=== PATIENT | female | born 2000 | race Hispanic/Latino ===

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

== ENCOUNTER 2019-04-17 11:14 | Emergency (ER) | payer SELFPAY ==
--- NOTE | 2019-04-17 11:49 | EDPHYS ---
Physician Documentation [facility] Name: Lucian Moore Age: 18 yrs Sex: Female : 2000 Arrival Date: 04/17/2019 Time: 11:23 Bed 16 Private MD: None, None ED Physician Souleymane Carvalho HPI: 04/17 11:43 This 18 yrs old Female presents to ER via Ambulatory with complaints of Low la1 Back Pain. 11:43 The patient presents with pain that is acute, that is chronic. The symptoms are located la1 in the low back, lumbar spine. The pain does not radiate. Modifying factors: The patient symptoms are alleviated by OTC meds, NSAID, the patient symptoms are aggravated by bending, movement. Associated signs and symptoms: Pertinent negatives: hematuria, incontinence, numbness, tingling, urinary retention, weakness. Severity of symptoms: At their worst the symptoms were mild. The patient has experienced similar episodes in the past. Pt reports history of back pain for the last month which became worse after moving boxes yesterday. Denies numbness/tingling, incontinence.. 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 - Social history:: Smoking status: Patient uses tobacco products, denies chronic smoking, but will smoke occasionally. - Ebola Screening: : No symptoms or risks identified at this time. ROS: 11:45 Constitutional: Negative for fever, chills, and weight loss, Eyes: Negative for injury, la1 pain, redness, and discharge, ENT: Negative for injury, pain, and discharge, Neck: Negative for injury, pain, and swelling, Cardiovascular: Negative for chest pain, palpitations, and edema, Respiratory: Negative for shortness of breath, cough, wheezing, and pleuritic chest pain, Abdomen/GI: Negative for abdominal pain, nausea, vomiting, diarrhea, and constipation, Back: Negative for injury and pain, : Negative for injury, bleeding, discharge, and swelling, Skin: Negative for injury, rash, and discoloration, Neuro: Negative for headache, weakness, numbness, tingling, and seizure. 11:45 MS/extremity: Positive for pain, of the lumbar spine. Exam: 11:45 Constitutional: This is a well developed, well nourished patient who is awake, alert, la1 and in no acute distress. Head/Face: Normocephalic, atraumatic. Eyes: Pupils equal round and reactive to light, extra-ocular motions intact. Periorbital areas with no swelling, redness, or edema. ENT: Mucous membranes moist. Neck: No Meningismus. Chest/axilla: Normal chest wall appearance and motion. Nontender with no deformity. No lesions are appreciated. Cardiovascular: Regular rate and rhythm with a normal S1 and S2. No gallops, murmurs, or rubs. Normal PMI, no JVD. No pulse deficits. 11:45 Back: pain, that is mild, ROM is painful, with flexion, normal spinal alignment noted, CVA tenderness, is absent, muscle spasm, is appreciated in the lumbar area, Straight leg raises: left lower extremity does not illicit pain, right lower extremity illicits pain, at 30 degrees. 11:45 Neuro: Orientation: is normal, Motor: is normal, Sensation: is normal. Vital Signs: 11:34 BP 117 / 79; Pulse 72; Resp 16; Temp 97.3; Pulse Ox 100% on R/A; Weight 113.7 kg (M); hb Height 5 ft. 2 in. (157.48 cm); Pain 7/10; 12:01 BP 121 / 75; Pulse 71; Resp 16; Temp 97.8; Pulse Ox 100% ; bp 11:34 Body Mass Index 45.85 (113.70 kg, 157.48 cm) hb MDM: 11:28 Patient medically screened. la1 11:47 Data reviewed: vital signs, nurses notes, and as a result, I will discharge patient. la1 Data interpreted: Pulse oximetry: on room air is 100 %. Counseling: I had a detailed discussion with the patient and/or guardian regarding: the historical points, exam findings, and any diagnostic results supporting the discharge/admit diagnosis, the need for outpatient follow up, a family practitioner. Administered Medications: No medications were administered Disposition: 04/17/19 11:48 Discharged to Home. Impression: Low back pain. - Condition is Stable. - Discharge Instructions: Back Pain, Adult, Musculoskeletal Pain, Back Injury Prevention, [id number]. - Prescriptions for Cyclobenzaprine 10 mg Oral Tablet - take 1 tablet by ORAL route every 8 hours As needed; 30 tablet. - Work release form, Medication Reconciliation Form, Thank You Letter form. - Follow up: Private Physician; When: 2 - 3 days; Reason: Recheck today's complaints, Re-evaluation by your physician. Follow up: Emergency Department; When: As needed. - Problem is new. - Symptoms are unchanged. Addendum: 04/18/2019 20:53 Co-signature as Attending Physician, Souleymane Carvalho MD I agree with the assessment and k dr plan of care. Signatures: Souleymane aCrvalho MD MD [facility] Niko Hinds, DELANEY-C MEDICAL BILLING SPECIALIST-Cla1 Sonia Haynes, RN RN Otf Schuster, RN RN bp Corrections: (The following items were deleted from the chart) 04/17 12:05 11:48 04/17/2019 11:48 Discharged to Home. Impression: Low back pain. Condition is bp Stable. Forms are Medication Reconciliation Form, Thank You Letter, Antibiotic Education, Prescription Opioid Use. Follow up: Private Physician; When: 2 - 3 days; Reason: Recheck today's complaints, Re-evaluation by your physician. Follow up: Emergency Department; When: As needed. Problem is new. Symptoms are unchanged. la1
--- NOTE | 2019-04-17 11:49 | ER ---
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 Transition of care: patient was not received from another setting of care. Onset of symptoms was April 16, 2019. Risk Assessment: Do you want to hurt yourself or someone else? Patient reports no desire to harm self or others. Initial Sepsis Screen: Does the patient meet any 2 criteria? No. Patient's initial sepsis screen is negative. Does the patient have a suspected source of infection? No. Patient's initial sepsis screen is negative. Care prior to arrival: None. 11:33 Method Of Arrival: Ambulatory hb 11:33 Acuity: SAMUEL 4 hb Triage Assessment: 11:33 General: Appears in no apparent distress. comfortable, obese, Behavior is calm, bp cooperative, appropriate for age. Pain: Complains of pain in lumbar area. EENT: No deficits noted. Neuro: No deficits noted. Cardiovascular: No deficits noted. Respiratory: No deficits noted. GI: No signs and/or symptoms were reported involving the gastrointestinal system. : No signs and/or symptoms were reported regarding the genitourinary system. : No deficits noted. Derm: No deficits noted. Musculoskeletal: No deficits noted. 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 - Social history:: Smoking status: Patient uses tobacco products, denies chronic smoking, but will smoke occasionally. - Ebola Screening: : No symptoms or risks identified at this time. Screenin:36 Abuse screen: Denies threats or abuse. Denies injuries from another. Nutritional bp screening: No deficits noted. Tuberculosis screening: No symptoms or risk factors identified. Fall Risk None identified. Assessment: 11:36 General: SEE TRIAGE NOTE. bp 12:00 Reassessment: PT D/C HOME AMBULATORY WITH FAMILY, DX WITH LOW BACK PAIN. bp Vital Signs: 11:34 BP 117 / 79; Pulse 72; Resp 16; Temp 97.3; Pulse Ox 100% on R/A; Weight 113.7 kg (M); hb Height 5 ft. 2 in. (157.48 cm); Pain 7/10; 12:01 BP 121 / 75; Pulse 71; Resp 16; Temp 97.8; Pulse Ox 100% ; bp 11:34 Body Mass Index 45.85 (113.70 kg, 157.48 cm) hb ED Course: 11:23 Patient arrived in ED. ag5 11:23 None, None is Private Physician. ag5 11:25 [facility] la1 11:25 Souleymane Carvalho MD is Attending Physician. la1 11:28 Otf Schuster, RN is Primary Nurse. bp 11:33 Triage completed. hb 11:36 Arm band placed on. hb 11:36 Patient has correct armband on for positive identification. Bed in low position. Call bp light in reach. Side rails up X2. Adult w/ patient. 12:04 No provider procedures requiring assistance completed. Patient did not have IV access bp during this emergency room visit. Administered Medications: No medications were administered Outcome: 11:48 Discharge ordered by MD. la1 12:04 Discharged to home via ambulance, with family. bp 12:04 Condition: stable 12:04 Discharge instructions given to patient, Instructed on discharge instructions, follow up and referral plans. medication usage, Demonstrated understanding of instructions, follow-up care, medications, Prescriptions given X 1. 12:05 Patient left the ED. bp Signatures: Niko Hinds FNP-C LIQUID COMPOUNDER-Cla1 Sonia Haynes RN RN Otf Schuster, NORIS RN bp Tien Arredondo ag5 Corrections: (The following items were deleted from the chart) 12:03 12:02 Abuse screen: Denies threats or abuse. Denies injuries from another. bp bp 12:03 12:02 Nutritional screening: No deficits noted. bp bp 12:03 12:02 Tuberculosis screening: No symptoms or risk factors identified. bp bp 12:03 12:02 Fall Risk None identified. bp bp
[2019-04-17 12:19] VITALS: O2SAT 100
[2019-04-17 12:21] VITALS: BP 121/75; TEMP 97.8
== END 2019-04-17 12:05 | disposition home or self-care (01) ==
LOC: ER 11:14
DX: M54.5 Low back pain (principal); Z72.0 Tobacco use
CPT/HCPCS: 99282

== ENCOUNTER 2019-08-24 | Emergency (ER) | payer SELFPAY | END 2019-08-24 22:57 | disposition home or self-care (01) | CPT/HCPCS: 87070; 87081; 87804; 99283; U0001; U0002 ==

== ENCOUNTER 2021-05-24 15:01 | Emergency (ER) | payer SELFPAY ==
[2021-05-24 15:52] LABS: Absolute Lymphocytes (CBC) 2.3 K/uL (0.7-4.9); Hematocrit 38.9 % (36.0-45.0); Lymphocytes % 33.2 % (15.3-44.8); MPV 8.7 fL (7.6-11.3); RBC Red Blood Cell Count 4.16 M/uL (3.86-4.86)
[2021-05-24 15:58] LABS: Protime INR 0.99
[2021-05-24 16:11] LABS: ALT/SGPT 45 U/L (12-78); AST/SGOT 21 U/L (15-37); Albumin 3.5 g/dL (3.4-5.0); Alkaline Phosphatase 79 U/L (45-117); BUN Blood Urea Nitrogen 13 mg/dL (7-18); Bicarbonate 25 mmol/L (21-32); Bilirubin Direct < 0.1 mg/dL (0-0.2); Bilirubin Total 0.4 mg/dL (0.2-1.0); Glucose Level 108 mg/dL (74-106); Magnesium 2.1 mg/dL (1.8-2.4); NT PRO-BNP 33 pg/mL (<125); Protein, Total 7.6 g/dL (6.4-8.2); Sodium Level 137 mmol/L (136-145)
--- NOTE | 2021-05-24 16:44 | RAD REPORT ---
EXAM DESCRIPTION: RAD - Chest Single View - 05/24/2021 4:01 pm CLINICAL HISTORY: CHEST PAIN COMPARISON: None TECHNIQUE: AP portable chest image was obtained 05/24/2021 4:01 pm . FINDINGS: Lung volumes are low accentuating the bibasilar lung markings. No acute lung parenchymal p rocess suspected. Failure and volume overload are not suspected. The Heart and vasculature are normal . No measurable pleural effusion and no pneumothorax. No acute bony abnormality seen. No acute aortic findings suspected. IMPRESSION: No acute cardiopulmonary process.
[2021-05-24] MEDS ORDERED: MAGNES/ALUMIN/SIMET 30ML UCUP ONE (17:25)
[2021-05-24] MEDS ORDERED: LIDOCAINE VISCOUS 2% SOLN 15 ML UDC ONE (17:25)
--- NOTE | 2021-05-24 17:34 | ER ---
Nurse's Notes [facility] Name: Lucian Moore Age: 20 yrs Sex: Female : 2000 Arrival Date: 05/24/2021 Time: 15:05 Bed 12 Private MD: Diagnosis: Chest pain, unspecified Presentation: 05/24 15:07 Chief complaint: Patient states: "I am having chest pain in me left side of my chest jd3 that started last night and got worse today.". Coronavirus screen: At this time, the client does not indicate any symptoms associated with coronavirus-19. Ebola Screen: No symptoms or risks identified at this time. Initial Sepsis Screen: Does the patient meet any 2 criteria? No. Patient's initial sepsis screen is negative. Does the patient have a suspected source of infection? No. Patient's initial sepsis screen is negative. Risk Assessment: Do you want to hurt yourself or someone else? Patient reports no desire to harm self or others. Onset of symptoms was May 23, 2021. 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 Flu vaccine is not up to date. - Social history:: Smoking status: Patient reports the use of cigarette tobacco products, denies chronic smoking, but will smoke occasionally. Vital Signs: 15:09 BP 115 / 81; Pulse 76; Resp 18 S; Temp 97.9(TE); Pulse Ox 100% on R/A; Weight 113.4 kg jd3 (R); Height 5 ft. 3 in. (160.02 cm) (R); Pain 7/10; 15:09 Body Mass Index 44.29 (113.40 kg, 160.02 cm) jd3 ED Course: 15:05 Patient arrived in ED. mr 15:08 Triage completed. jd3 15:10 Arm band placed on. jd3 15:13 Mickail, Ian, PA is PHCP. [facility] 15:13 Souleymane Carvalho MD is Attending Physician. [facility] 15:25 Olamide Mckinley, RN is Primary Nurse. [facility] 15:43 CBC with Diff Sent. 5 15:43 LFT's Sent. [facility] 15:43 Magnesium Sent. 5 15:43 NT PRO-BNP Sent. 5 15:43 PT-INR Sent. [facility] 15:43 Troponin HS Sent. [facility] 15:43 Basic Metabolic Panel Sent. 5 15:43 D-Dimer Sent. [facility] 16:00 XRAY Chest (1 view) In Process Unspecified. EDMS 17:34 Carlos Moura MD is Referral Physician. [facility] Administered Medications: 17:27 Drug: GI Cocktail without - (Maalox Suspension 30 ml, Lidocaine Liquid 2 % 15 jh5 ml) Route: PO; Outcome: 17:34 Discharge ordered by MD. [facility] 18:22 Patient left the ED. [facility] Signatures: Dispatcher [employer] EDRI Ian Urrutia PA PA [facility] Harriett RobertsTrell RN RN Olamide Mak, RN RN [facility] Corrections: (The following items were deleted from the chart) 15:10 15:09 Pulse 76bpm; Resp 18bpm; Spontaneous; Pulse Ox 100% RA; Temp 97.9F Temporal; jd3 113.4 kg Reported; Height 5 ft. 3 in. Reported; BMI: 44.2; Pain 7/10; jd3
--- NOTE | 2021-05-24 17:35 | EDPHYS ---
Physician Documentation [facility] Name: Lucian Moore Age: 20 yrs Sex: Female : 2000 Arrival Date: 05/24/2021 Time: 15:05 Bed 12 Private MD: ED Physician Souleymane Carvalho HPI: 05/24 15:19 This 20 yrs old Female presents to ER via Ambulatory with complaints of Chest [facility] Pain. 15:19 The patient or guardian reports chest pain that is located primarily in the substernal [facility] area. The pain does not radiate. Associated signs and symptoms: Pertinent negatives: abdominal pain, cough, shortness of breath. The chest pain is described as aching. Duration: The patient or guardian reports a single episode. Modifying factors: The symptoms are alleviated by nothing. the symptoms are aggravated by nothing. The patient has not experienced similar symptoms in the past. This is a 20-year-old female with no chronic medical conditions presents emerged part with complaints of left-sided chest pain beginning last night. Symptoms have been constant. There is no radiation of pain. Denies shortness of breath or hemoptysis. Denies leg swelling. Patient is not taking any prescriptions.. 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 Flu vaccine is not up to date. - Social history:: Smoking status: Patient reports the use of cigarette tobacco products, denies chronic smoking, but will smoke occasionally. ROS: 15:19 Constitutional: Negative for fever, chills, and weight loss. jmm 15:19 Cardiovascular: Positive for chest pain. 15:19 All other systems are negative. Exam: 15:19 Constitutional: This is a well developed, well nourished patient who is awake, alert, jmm and in no acute distress. Head/Face: atraumatic. Eyes: EOMI, no conjunctival erythema appreciated ENT: Moist Mucus Membranes Neck: Trachea midline, Supple Chest/axilla: Normal chest wall appearance and motion. 15:19 Respiratory: Normal respirations, no respiratory distress appreciated Abdomen/GI: Non distended, soft Back: Normal ROM Skin: General appearance color normal MS/ Extremity: Moves all extremities, no obvious deformities appreciated, no edema noted to the lower extremities Neuro: Awake and alert Psych: Behavior is normal, Mood is normal, Patient is cooperative and pleasant 15:19 Cardiovascular: Rate: normal, Rhythm: regular, Pulses: no pulse deficits are appreciated. Vital Signs: 15:09 BP 115 / 81; Pulse 76; Resp 18 S; Temp 97.9(TE); Pulse Ox 100% on R/A; Weight 113.4 kg jd3 (R); Height 5 ft. 3 in. (160.02 cm) (R); Pain 7/10; 15:09 Body Mass Index 44.29 (113.40 kg, 160.02 cm) jd3 MDM: 15:19 Patient medically screened. [facility] 17:30 Data reviewed: vital signs, nurses notes. Counseling: I had a detailed discussion with vishal the patient and/or guardian regarding: the historical points, exam findings, and any diagnostic results supporting the discharge/admit diagnosis, lab results, radiology results, the need for outpatient follow up, to return to the emergency department if symptoms worsen or persist or if there are any questions or concerns that arise at home. 05/24 15:21 Order name: Basic Metabolic Panel [facility] 05/24 15:21 Order name: CBC with Diff; Complete Time: 15:56 [facility] 05/24 15:21 Order name: LFT's; Complete Time: 16:16 [facility] 05/24 15:21 Order name: Magnesium; Complete Time: 16:16 [facility] 05/24 15:21 Order name: NT PRO-BNP; Complete Time: 16:16 [facility] 05/24 15:21 Order name: PT-INR; Complete Time: 16:16 [facility] 05/24 15:21 Order name: Troponin HS; Complete Time: 16:16 [facility] 05/24 15:21 Order name: XRAY Chest (1 view); Complete Time: 16:49 [facility] 05/24 15:21 Order name: EKG; Complete Time: 15:22 [facility] 05/24 15:21 Order name: Cardiac monitoring; Complete Time: 15:29 [facility] 05/24 15:21 Order name: EKG - Nurse/Tech; Complete Time: 15:43 [facility] 05/24 15:21 Order name: D-Dimer; Complete Time: 16:16 [facility] 05/24 15:21 Order name: Basic Metabolic Panel; Complete Time: 16:16 [facility] 05/24 15:21 Order name: IV Saline Lock; Complete Time: 15:43 [facility] 05/24 15:21 Order name: Labs collected and sent; Complete Time: 15:43 [facility] 05/24 15:21 Order name: O2 Per Protocol; Complete Time: 15:29 [facility] 05/24 15:21 Order name: O2 Sat Monitoring; Complete Time: 15:29 [facility] Administered Medications: 17:27 Drug: GI Cocktail without - (Maalox Suspension 30 ml, Lidocaine Liquid 2 % 15 jh5 ml) Route: PO; Disposition: 19:04 Co-signature as Attending Physician, Souleymane Carvalho MD I agree with the assessment and kdr plan of care. Disposition Summary: 05/24/21 17:34 Discharge Ordered Location: Home [facility] Condition: Stable [facility] Diagnosis - Chest pain, unspecified jmm Followup: jm - With: Carlos Moura MD - When: 2 - 3 days - Reason: Recheck today's complaints, Continuance of care, Re-evaluation by your physician Discharge Instructions: - Discharge Summary Sheet jmm - Nonspecific Chest Pain, Adult jmm Forms: - Medication Reconciliation Form [facility] - Thank You Letter jmm - Antibiotic Education jmm - Prescription Opioid Use [facility] Signatures: Dispatcher [employer] Souleymane Buck MD MD kdr Mickail, Joel, PA PA [facility] Trell Young RN RN jd3 Olamide Mckinley RN RN jh5
[2021-05-25 00:46] VITALS: BP 115/81; TEMP 97.9; O2SAT 100
--- NOTE | 2021-05-25 08:25 | EKG ---
Test Date: 2021-05-24 Test Time: 15:38:55 Ase Certified Technician: ZULEMA R MEASUREMENT RESULTS: Intervals: Rate: 71 MD: 138 QRSD: 80 QT: 418 QTc: 454 [place]: P: 35 MD: 138 QRS: 3 T: 16 INTERPRETIVE STATEMENTS: Normal sinus rhythm with sinus arrhythmia Normal ECG No previous ECG available for comparison Electronically Signed On 05-25-21 08:22:27 THERMODYNAMICS PROFESSOR by Jason Lopes
== END 2021-05-24 18:22 | disposition home or self-care (01) ==
LOC: ER 15:01
DX: R07.9 Chest pain, unspecified (principal)
CPT/HCPCS: 36415; 71045; 80048; 80076; 83735; 83880; 84484; 85025; 85379; 85610; 93005; 99283

== ENCOUNTER 2021-09-29 21:45 | Emergency (ER) | payer BC, SELFPAY ==
[2021-09-29] MEDS ORDERED: CEFAZOLIN SODIUM 1 GM/VIAL ONE (22:56)
[2021-09-29] MEDS ORDERED: HYDROCODONE/APAP 10/325 TAB ONE (22:57)
[2021-09-29] MEDS ORDERED: SMZ./TMP. 800/160 MG TABLET ONE (22:57)
[2021-09-29] MEDS ORDERED: WATER FOR INJ,STERILE 10 ML ONE (22:59)
--- NOTE | 2021-09-30 00:19 | ER ---
Nurse's Notes [facility] Name: Lucian Moore Age: 21 yrs Sex: Female : 2000 Arrival Date: 09/29/2021 Time: 21:48 Bed 12 Private MD: Diagnosis: Left great toe distal tuft fracture Presentation: 09/29 21:52 Chief complaint: Patient states: "Last week I dropped 4 rail row ties on my toe. I tw5 think My toe is getting worse not better.". Coronavirus screen: Vaccine status: Patient reports being unvaccinated. Ebola Screen: Patient negative for fever greater than or equal to 101.5 degrees Fahrenheit, and additional compatible Ebola Virus Disease symptoms Patient denies exposure to infectious person. Patient denies travel to an Ebola-affected area in the 21 days before illness onset. Initial Sepsis Screen: Does the patient meet any 2 criteria? No. Patient's initial sepsis screen is negative. Does the patient have a suspected source of infection? No. Patient's initial sepsis screen is negative. Risk Assessment: Do you want to hurt yourself or someone else? Patient reports no desire to harm self or others. Onset of symptoms is unknown. 21:52 Method Of Arrival: Ambulatory tw5 21:52 Acuity: SAMUEL 4 tw5 Triage Assessment: 21:56 General: Appears uncomfortable, obese, Behavior is calm, cooperative, appropriate for tw5 age. Pain: Complains of pain in left first toe and Left first toenail Pain currently is 5 out of 10 on a pain scale. 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 - Social history:: Smoking status: Patient reports the use of cigarette tobacco products, denies chronic smoking, but will smoke occasionally. Screenin:57 Abuse screen: Denies threats or abuse. Denies injuries from another. tw5 23:00 Nutritional screening: No deficits noted. Tuberculosis screening: No symptoms or risk fu factors identified. Fall Risk None identified. Assessment: 22:00 General: Appears in no apparent distress. Behavior is calm, cooperative, appropriate fu for age, Denies fever, feeling ill, fatigue, chills. Pain: Complains of pain in left foot Pain currently is 2 out of 10 on a pain scale. Quality of pain is described as throbbing, Pain began 6 days ago. Neuro: Level of Consciousness is awake, alert, obeys commands, Oriented to person, place, time, situation, Moves all extremities. Gait is steady, Speech is normal, Facial symmetry appears normal. Derm: swelling to left foot and big toe. Musculoskeletal: Swelling present in left foot and Left first toenail. 23:00 Reassessment: Patient is alert, oriented x 3, equal unlabored respirations, skin fu warm/dry/pink. Patient denies pain at this time. 09/30 00:00 Reassessment: Patient is alert, oriented x 3, equal unlabored respirations, skin fu warm/dry/pink. Vital Signs: 09/29 21:52 BP 126 / 77; Pulse 72; Resp 18; Temp 98.1(O); Pulse Ox 100% ; Weight 117.93 kg; Height tw5 5 ft. 3 in. (160.02 cm); Pain 5/10; 23:10 BP 125 / 83; Pulse 68; Resp 16; Temp 97.5; Pulse Ox 100% ; Pain 0/10; fu 09/30 00:00 BP 114 / 77; Pulse 62; Resp 16; Pulse Ox 96% on R/A; Pain 0/10; fu 09/29 21:52 Body Mass Index 46.06 (117.93 kg, 160.02 cm) tw5 ED Course: 09/29 21:48 Patient arrived in ED. ag3 21:56 Triage completed. tw5 21:56 Arm band placed on left wrist. tw5 22:25 Ruy Berg NP is PHCP. pm1 22:25 Douglas Webb MD is Attending Physician. pm1 22:42 Manan Fernandez, NORIS is Primary Nurse. fu 23:00 Patient has correct armband on for positive identification. Bed in low position. Call fu light in reach. Side rails up X 1. Pulse ox on. NIBP on. 23:03 Foot Left 3 View XRAY In Process Unspecified. EDMS 09/30 00:17 Otf Palm DPM is Referral Physician. pm1 00:55 No provider procedures requiring assistance completed. Patient did not have IV access fu during this emergency room visit. Dressings: 4X4s triple antibiotic. Administered Medications: 09/29 23:07 Drug: Ancef (cefazolin) 1 grams Route: IM; Site: left gluteus; fu 09/30 01:11 Follow up: Response: No adverse reaction fu 09/29 23:07 Drug: Bactrim (trimethoprim-sulfamethoxazole) (160 mg-800 mg (DS) 1 tablet Route: PO; fu 09/30 01:11 Follow up: Response: No adverse reaction fu 00:13 Not Given (Patient Refused): [place] (HYDROcodone-acetaminophen) 10 mg-325 mg 1 tabs PO fu once Medication: 09/29 23:00 VIS not applicable for this client. fu Outcome: 09/30 00:18 Discharge ordered by . pm1 01:11 Discharged to home ambulatory, with friend. fu 01:11 Condition: good 01:11 Discharge instructions given to patient, Instructed on discharge instructions, follow up and referral plans. Demonstrated understanding of instructions, follow-up care, Prescriptions given X 3. 01:12 Patient left the ED. fu Signatures: Dispatcher [employer] EDMS Ruy Berg, LIGHT FIXTURE SERVICER LIGHT FIXTURE SERVICER pm1 Manan Fernandez RN RN Odalis Omalley 3 Harleen Coyne 5 Corrections: (The following items were deleted from the chart) 01:06 01:06 Reassessment: Patient is alert, oriented x 3, equal unlabored respirations, skin fu warm/dry/pink. Patient denies pain at this time. fu
--- NOTE | 2021-09-30 00:19 | EDPHYS ---
Physician Documentation [facility] Name: Lucian Moore Age: 21 yrs Sex: Female : 2000 Arrival Date: 09/29/2021 Time: 21:48 Bed 12 Private MD: ED Physician Douglas Webb HPI: 09/29 22:41 This 21 yrs old Female presents to ER via Ambulatory with complaints of Toe pm1 Injury. 22:41 The patient presents with a crush injury, from a heavy object. pm1 22:41 The complaints affect the left first toe. Context: The problem was sustained at work, pm1 resulted from crush injury to left great toe, the patient is not able to bear weight, the patient is able to ambulate. Onset: The symptoms/episode began/occurred 1 week(s) ago. Modifying factors: The symptoms are alleviated by nothing, the symptoms are aggravated by weight bearing, movement. Associated signs and symptoms: Pertinent positives: swelling, Pertinent negatives: fever. Severity of symptoms: in the emergency department the symptoms are actually worse. The patient has not experienced similar symptoms in the past. 21-year-old female presents to the ER with complaints of left great toe injury. Patient was at work and dropped a heavy object, railroad tie onto her left great toe. Patient was not wearing steel toe shoes. She was sent to a clinic by her job and she was given pain medications, Tylenol 3, that she reports does not help. Patient's great toe nail was avulsed and laceration and nailbed present. Patient was not sutured nor given any antibiotics. Patient presents the ER today with complaints of no improvement in her toe injury. 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 - Social history:: Smoking status: Patient reports the use of cigarette tobacco products, denies chronic smoking, but will smoke occasionally. ROS: 22:41 MS/extremity: Positive for pain, swelling, of the left first toe. pm1 22:41 Constitutional: Negative for fever, chills, and weight loss. 22:41 Cardiovascular: Negative for chest pain, palpitations, and edema, Respiratory: Negative for shortness of breath, cough, wheezing, and pleuritic chest pain, Abdomen/GI: Negative for abdominal pain, nausea, vomiting, diarrhea, and constipation. 22:41 Neuro: Negative for headache, weakness, numbness, tingling, and seizure. 22:41 All other systems are negative. Exam: 22:41 Constitutional: This is a well developed, well nourished patient who is awake, alert, pm1 and in no acute distress. Head/Face: Normocephalic, atraumatic. 22:41 Cardiovascular: Exam negative for acute changes, Rate: normal, Rhythm: regular, Pulses: no pulse deficits are appreciated. 22:41 Respiratory: Exam negative for acute changes, respiratory distress, shortness of breath, Breath sounds: are clear throughout. 22:41 Musculoskeletal/extremity: Extremities: grossly normal except: noted in the left first toe: No great toe nail present, no discharge. Small nailbed laceration with mild bleeding present. No signs of cellulitis or abscess present, There is no evidence of decreased ROM. 22:41 Neuro: Exam negative for acute changes, Orientation: is normal, Mentation: is normal, Motor: is normal, moves all fours. Vital Signs: 21:52 BP 126 / 77; Pulse 72; Resp 18; Temp 98.1(O); Pulse Ox 100% ; Weight 117.93 kg; Height tw5 5 ft. 3 in. (160.02 cm); Pain 5/10; 23:10 BP 125 / 83; Pulse 68; Resp 16; Temp 97.5; Pulse Ox 100% ; Pain 0/10; fu 09/30 00:00 BP 114 / 77; Pulse 62; Resp 16; Pulse Ox 96% on R/A; Pain 0/10; fu 09/29 21:52 Body Mass Index 46.06 (117.93 kg, 160.02 cm) tw5 MDM: 09/29 22:36 Patient medically screened. pm1 09/30 00:17 Data reviewed: vital signs. Data interpreted: Pulse oximetry: on room air is 100 %. pm1 Interpretation: normal. Counseling: I had a detailed discussion with the patient and/or guardian regarding: the historical points, exam findings, and any diagnostic results supporting the discharge/admit diagnosis, radiology results, the need for outpatient follow up, a community worker, to return to the emergency department if symptoms worsen or persist or if there are any questions or concerns that arise at home. 00:22 ED course: PMPaware reviewed. Patient reports tylenol 3 not effective in pain. Will pm1 prescribe tramadol. 09/29 22:41 Order name: Foot Left 3 View XRAY pm1 09/30 00:12 Order name: Post-op shoe; Complete Time: 00:58 pm1 09/30 00:13 Order name: Wound dressing; Complete Time: 00:58 pm1 Administered Medications: 09/29 23:07 Drug: Ancef (cefazolin) 1 grams Route: IM; Site: left gluteus; fu 09/30 01:11 Follow up: Response: No adverse reaction fu 09/29 23:07 Drug: Bactrim (trimethoprim-sulfamethoxazole) (160 mg-800 mg (DS) 1 tablet Route: PO; fu 09/30 01:11 Follow up: Response: No adverse reaction fu 00:13 Not Given (Patient Refused): [place] (HYDROcodone-acetaminophen) 10 mg-325 mg 1 tabs PO fu once Disposition: 02:08 Co-signature as Attending Physician, Douglas Webb MD. [email or web address] Disposition Summary: 09/30/21 00:18 Discharge Ordered Location: Home pm1 Problem: new pm1 Symptoms: have improved pm1 Condition: Stable pm1 Diagnosis - Left great toe distal tuft fracture pm1 Followup: pm1 - With: Emergency Department - When: As needed - Reason: Worsening of condition Followup: pm1 - With: Otf Palm DPM - When: 2 - 3 days - Reason: Recheck today's complaints, Continuance of care, Re-evaluation by your physician Discharge Instructions: - Discharge Summary Sheet pm1 - Nail Bed Injury pm1 - Toe Fracture pm1 Forms: - Medication Reconciliation Form pm1 - Thank You Letter pm1 - Antibiotic Education pm1 - Prescription Opioid Use pm1 Prescriptions: - Cephalexin 500 mg Oral Capsule - take 1 capsule by ORAL route every 8 hours for 10 days; 30 capsule; Refills: 0, pm1 Product Selection Permitted - Bactrim DS 800-160 mg Oral Tablet - take 1 tablet by ORAL route every 12 hours for 10 days; 20 tablet; Refills: 0, pm1 Product Selection Permitted - Tramadol 50 mg Oral Tablet - take 1 tablet by ORAL route every 8 hours as needed; 12 tablet; Refills: 0, pm1 Product Selection Permitted Signatures: Dispatcher [employer] Ruy Beckford, BRENDEN MASONRY CONTRACTOR pm1 Manan Fernandez, RN Douglas Pacheco MD MD mh7 Harleen Coyne tw5
[2021-09-30 01:45] VITALS: TEMP 97.5
[2021-09-30 01:47] VITALS: BP 114/77; O2SAT 96
--- NOTE | 2021-09-30 12:59 | RAD REPORT ---
EXAM DESCRIPTION: RAD - Foot Left 3 View - 09/29/2021 11:01 pm CLINICAL HISTORY: Pain TECHNIQUE: Frontal, lateral and oblique views of the left foot. COMPARISON: No relevant prior studies available. FINDINGS: Bones/joints: Mildly comminuted, mildly displaced 1st distal phalangeal tuft fracture. No dislocation. Soft tissues: Unremarkable. No radiopaque foreign body. IMPRESSION: 1st distal phalangeal tuft fracture. Electronically signed by: Rah Aguillon MD 09/29/2021 11:36 PM CDT Due to temporary technical issues with the PACS/Fluency reporting system, reports are being signed by the in house radiologist without review as a courtesy to ensure prompt reporting. The interpreting r adiologist is fully responsible for the content of the report.
== END 2021-09-30 01:12 | disposition home or self-care (01) ==
LOC: ER 21:45
DX: S92.422A Displaced fracture of distal phalanx of left great toe, initial encounter for closed fracture (principal); W20.8XXA Other cause of strike by thrown, projected or falling object, initial encounter; Y92.89 Other specified places as the place of occurrence of the external cause; Y99.8 Other external cause status; F17.210 Nicotine dependence, cigarettes, uncomplicated
CPT/HCPCS: 73630; 96372; 99284; J0690

== ENCOUNTER 2022-05-06 10:45 | Emergency (ER) | payer BC ==
--- NOTE | 2022-05-06 11:33 | ER ---
Nurse's Notes [facility] Name: Lucian Moore Age: 21 yrs Sex: Female : 2000 Arrival Date: 05/06/2022 Time: 10:55 Bed 9 Private MD: Diagnosis: Unspecified contact dermatitis due to plants, except food Presentation: 05/06 11:21 Chief complaint: Patient states: she started having a small rash located on her left ap3 cheek on Monday05/04/2022 which she believed to be her eczema, however she woke up this morning, and the rash is larger and the left side of her face where the rash is located is slightly inflamed. patient states she cut down a tree that had poison arnol on it Monday afternoon. Coronavirus screen: At this time, the client does not indicate any symptoms associated with coronavirus-19. Ebola Screen: No symptoms or risks identified at this time. Initial Sepsis Screen: Does the patient meet any 2 criteria? No. Patient's initial sepsis screen is negative. Does the patient have a suspected source of infection? No. Patient's initial sepsis screen is negative. Risk Assessment: Do you want to hurt yourself or someone else? Patient reports no desire to harm self or others. Onset of symptoms was May 04, 2022. 11:21 Method Of Arrival: Ambulatory ap3 11:21 Acuity: SAMUEL 4 ap3 Triage Assessment: 11:24 General: Appears in no apparent distress. Behavior is calm, cooperative. Pain: ap3 Complains of pain in left cheek and left jaw. Neuro: Level of Consciousness is awake, alert, obeys commands, Oriented to person, place, time, situation. Cardiovascular: Patient's skin is warm and dry. Respiratory: Airway is patent Respiratory effort is even, unlabored, Respiratory pattern is regular, symmetrical. Derm: Rash noted that is itchy, red, on left cheek and left jaw. 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 Flu vaccine is not up to date. - Social history:: Smoking status: Patient reports the use of cigarette tobacco products, denies chronic smoking, but will smoke occasionally, Patient uses alcohol, occasionally. Screenin:25 Abuse screen: Denies threats or abuse. Nutritional screening: No deficits noted. ap3 11:56 [facility] ED Fall Risk Assessment (Adult) History of falling in the last 3 months, kr3 including since admission No falls in past 3 months (0 pts) Confusion or Disorientation No (0 pts) Intoxicated or Sedated No (0 pts) Impaired Gait No (0 pts) Mobility Assist Device Used No (0 pt) Altered Elimination No (0 pt) Score/Fall Risk Level 0 - 2 = Low Risk. Tuberculosis screening: No symptoms or risk factors identified. Assessment: 11:55 Reassessment: Patient appears in no apparent distress at this time. Patient is alert, kr3 oriented x 3, equal unlabored respirations, skin warm/dry/pink. Vital Signs: 11:21 BP 127 / 79; Pulse 81; Resp 17; Temp 97.7; Pulse Ox 100% ; Weight 127.01 kg; Height 5 ap3 ft. 4 in. (162.56 cm); 11:55 BP 128 / 85; Pulse 72; Resp 18; Pulse Ox 100% on R/A; kr3 11:21 Body Mass Index 48.06 (127.01 kg, 162.56 cm) ap3 ED Course: 10:55 Patient arrived in ED. cc5 11:00 Lilliana Butcher FNP-C [facility]. snw 11:00 Ruben Perkins DO is Attending Physician. snw 11:23 Triage completed. ap3 11:25 Arm band placed on right wrist. ap3 11:25 Patient has correct armband on for positive identification. Adult w/ patient. ap3 11:30 Jes Perdomo, NORIS is Primary Nurse. kr3 11:56 No provider procedures requiring assistance completed. Patient did not have IV access kr3 during this emergency room visit. Administered Medications: 11:44 Drug: Decadron (dexamethasone) 10 mg Route: IM; Site: right deltoid; kr3 11:58 Follow up: Response: No adverse reaction kr3 11:44 Drug: ZyrTEC - Cetirizine 10 mg Route: PO; kr3 11:57 Follow up: Response: No adverse reaction kr3 11:44 Drug: Pepcid (famotidine) 20 mg Route: PO; kr3 11:57 Follow up: Response: No adverse reaction kr3 Medication: 11:57 VIS not applicable for this client. kr3 Outcome: 11:31 Discharge ordered by . nacho 11:56 Discharged to home ambulatory. kr3 11:56 Condition: stable 11:56 Discharge instructions given to patient, Instructed on discharge instructions, follow up and referral plans. medication usage, Demonstrated understanding of instructions, follow-up care, medications, Prescriptions given X 3. 11:58 Patient left the ED. kr3 Signatures: Lilliana Butcher, SCALE TECHNICIAN-C SCALE TECHNICIAN-Csnw Joanie Gandhi RN RN [email or web address] Jes Perdomo RN RN kr3 Francisca Campbell5
--- NOTE | 2022-05-06 11:33 | EDPHYS ---
Physician Documentation [facility] Name: Lucian Moore Age: 21 yrs Sex: Female : 2000 Arrival Date: 05/06/2022 Time: 10:55 Bed 9 Private MD: ED Physician Ruben Perkins HPI: 05/06 11:34 This 21 yrs old Female presents to ER via Ambulatory with complaints of Rash - snw Poison fanny. 11:34 Associated signs and symptoms: Pertinent positives: burning sensation, itching, facial snw edema. Severity of symptoms: At their worst the symptoms were moderate. 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 Flu vaccine is not up to date. - Social history:: Smoking status: Patient reports the use of cigarette tobacco products, denies chronic smoking, but will smoke occasionally, Patient uses alcohol, occasionally. ROS: 11:34 Constitutional: Negative for fever, chills, and weight loss, Eyes: Negative for injury, snw pain, redness, and discharge, ENT: Negative for injury, pain, and discharge, Neck: Negative for injury, pain, and swelling, Cardiovascular: Negative for chest pain, palpitations, and edema, Respiratory: Negative for shortness of breath, cough, wheezing, and pleuritic chest pain, Abdomen/GI: Negative for abdominal pain, nausea, vomiting, diarrhea, and constipation, Back: Negative for injury and pain, : Negative for injury, bleeding, discharge, and swelling, MS/Extremity: Negative for injury and deformity, Neuro: Negative for headache, weakness, numbness, tingling, and seizure, Psych: Negative for depression, anxiety, suicide ideation, homicidal ideation, and hallucinations. 11:34 Skin: Positive for cellulitis, rash, swelling, of the left cheek and left jaw, moving to anterior neck and bilateral forearms. Exam: 11:36 Constitutional: This is a well developed, well nourished patient who is awake, alert, snw and in no acute distress. Eyes: Pupils equal round and reactive to light, extra-ocular motions intact. Lids and lashes normal. Conjunctiva and sclera are non-icteric and not injected. Cornea within normal limits. Periorbital areas with no swelling, redness, or edema. ENT: Nares patent. No nasal discharge, no septal abnormalities noted. Tympanic membranes are normal and external auditory canals are clear. Oropharynx with no redness, swelling, or masses, exudates, or evidence of obstruction, uvula midline. Mucous membranes moist. Neck: Trachea midline, no thyromegaly or masses palpated, and no cervical lymphadenopathy. Supple, full range of motion without nuchal rigidity, or vertebral point tenderness. No Meningismus. Chest/axilla: Normal chest wall appearance and motion. Nontender with no deformity. No lesions are appreciated. Cardiovascular: Regular rate and rhythm with a normal S1 and S2. No gallops, murmurs, or rubs. Normal PMI, no JVD. No pulse deficits. Respiratory: Lungs have equal breath sounds bilaterally, clear to auscultation and percussion. No rales, rhonchi or wheezes noted. No increased work of breathing, no retractions or nasal flaring. Abdomen/GI: Soft, non-tender, with normal bowel sounds. No distension or tympany. No guarding or rebound. No evidence of tenderness throughout. Back: No spinal tenderness. No costovertebral tenderness. Full range of motion. MS/ Extremity: Pulses equal, no cyanosis. Neurovascular intact. Full, normal range of motion. Neuro: Awake and alert, GCS 15, oriented to person, place, time, and situation. Cranial nerves II-XII grossly intact. Motor strength 5/5 in all extremities. Sensory grossly intact. Cerebellar exam normal. Normal gait. Psych: Awake, alert, with orientation to person, place and time. Behavior, mood, and affect are within normal limits. 11:36 Head/face: Noted is rash, consistent with contact derm from poison fanny/oak 11:36 Head/face: Noted is swelling, that is moderate, of the left cheek. 11:36 Skin: Appearance: normal except for affected area, contact dermatitis. Vital Signs: 11:21 BP 127 / 79; Pulse 81; Resp 17; Temp 97.7; Pulse Ox 100% ; Weight 127.01 kg; Height 5 ap3 ft. 4 in. (162.56 cm); 11:55 BP 128 / 85; Pulse 72; Resp 18; Pulse Ox 100% on R/A; kr3 11:21 Body Mass Index 48.06 (127.01 kg, 162.56 cm) ap3 MDM: 11:26 Patient medically screened. snw 11:33 Differential diagnosis: impetigo, allergic reaction, contact dermatitis. Data reviewed: snw vital signs, nurses notes. Data interpreted: Pulse oximetry: on room air is 100 %. Interpretation: normal. Counseling: I had a detailed discussion with the patient and/or guardian regarding: the historical points, exam findings, and any diagnostic results supporting the discharge/admit diagnosis, the need for outpatient follow up, for definitive care, to return to the emergency department if symptoms worsen or persist or if there are any questions or concerns that arise at home. Special discussion: Based on the history and exam findings, there is no indication for further emergent testing or inpatient evaluation. I discussed with the patient/guardian the need to see the primary care provider for further evaluation of the symptoms. ED course: Discussed contact derm, swelling, itching, OTC and Rx medications. Administered Medications: 11:44 Drug: Decadron (dexamethasone) 10 mg Route: IM; Site: right deltoid; kr3 11:58 Follow up: Response: No adverse reaction kr3 11:44 Drug: ZyrTEC - Cetirizine 10 mg Route: PO; kr3 11:57 Follow up: Response: No adverse reaction kr3 11:44 Drug: Pepcid (famotidine) 20 mg Route: PO; kr3 11:57 Follow up: Response: No adverse reaction kr3 Disposition: 16:12 Co-signature as Attending Physician, Ruben SEBASTIAN was immediately available on-site ms3 in the Emergency Department for consultation in the care of the patient. Disposition Summary: 05/06/22 11:31 Discharge Ordered Location: Home snw Condition: Stable snw Diagnosis - Unspecified contact dermatitis due to plants, except food snw Followup: snw - With: Emergency Department - When: As needed - Reason: Worsening of condition Followup: snw - With: Private Physician - When: 1 week - Reason: Recheck today's complaints, Continuance of care, Re-evaluation by your physician Discharge Instructions: - Discharge Summary Sheet snw - Contact Dermatitis snw - Poison Fanny Dermatitis snw - Poison Crouse Dermatitis snw - How to Use Cold Therapy snw Forms: - Medication Reconciliation Form snw - Thank You Letter snw - Antibiotic Education snw - Prescription Opioid Use snw - Work release form kr3 Prescriptions: - Zyrtec 10 mg Oral Tablet - take 1 tablet by ORAL route once daily As needed; 20 tablet; Refills: 0, snw Product Selection Permitted - Prednisone 20 mg Oral Tablet - take 2 tablets by ORAL route once daily for 5 days; 10 tablet; Refills: 0, snw Product Selection Permitted - Pepcid 20 mg Oral Tablet - take 1 tablet by ORAL route once daily; 20 tablet; Refills: 0, Product snw Selection Permitted Signatures: Lilliana Butcher FNP-C BUCKET TURNER-Maximilianw Joanie Gandhi RN RN ap3 Ruben Perkins DO DO ms3 Jes Perdomo RN RN kr3
[2022-05-06] MEDS ORDERED: FAMOTIDINE 20 MG TAB ONE (11:38)
[2022-05-06] MEDS ORDERED: dexAMETHasone 10 MG/ML VIAL ONE (11:38)
[2022-05-06] MEDS ORDERED: CETIRIZINE HCL 5 MG TABLET ONE (11:39)
[2022-05-06 12:06] VITALS: TEMP 97.7; O2SAT 100
[2022-05-06 12:11] VITALS: BP 128/85
== END 2022-05-06 11:58 | disposition home or self-care (01) ==
LOC: ER 10:45
DX: L25.5 Unspecified contact dermatitis due to plants, except food (principal); F17.210 Nicotine dependence, cigarettes, uncomplicated
CPT/HCPCS: 96372; 99283; J1100